=== PATIENT | female | born 1990 | race Caucasian/White ===

== ENCOUNTER 2025-03-28 21:13 | Emergency (ER) | payer MEDICAID ==
[~2025-03-28] VITALS: Ht 160 cm; Wt 52.2 kg
[2025-03-28 22:17] VITALS: BP 118/79; TEMP 98.3; O2SAT 98
== END 2025-03-28 23:16 | disposition home or self-care (01) ==
LOC: ER 21:16
DX: S90.31XA Contusion of right foot, initial encounter (principal); M79.671 Pain in right foot; X58.XXXA Exposure to other specified factors, initial encounter; Y93.89 Activity, other specified; Y92.89 Other specified places as the place of occurrence of the external cause; Y99.8 Other external cause status
CPT/HCPCS: 73630-TC